=== PATIENT | female | born 1975 | race African-American/Black ===

== ENCOUNTER 2016-11-18 13:25 | Emergency (ER) | payer OTHER | END 2016-11-18 14:46 | disposition home or self-care (01) | LOC: ERS 13:25 | DX: S16.1XXA Strain of muscle, fascia and tendon at neck level, initial encounter (principal); S39.012A Strain of muscle, fascia and tendon of lower back, initial encounter; F41.9 Anxiety disorder, unspecified; F31.9 Bipolar disorder, unspecified; F17.210 Nicotine dependence, cigarettes, uncomplicated; V89.2XXA Person injured in unspecified motor-vehicle accident, traffic, initial encounter | CPT/HCPCS: 99283 ==

== ENCOUNTER 2018-03-12 01:42 | Emergency (ER) | payer OTHER ==
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
== END 2018-03-12 03:25 ==
LOC: ERS 01:42
DX: Z04.1 Encounter for examination and observation following transport accident (principal); I10 Essential (primary) hypertension; F17.210 Nicotine dependence, cigarettes, uncomplicated; F41.9 Anxiety disorder, unspecified; F31.9 Bipolar disorder, unspecified; V89.2XXA Person injured in unspecified motor-vehicle accident, traffic, initial encounter
CPT/HCPCS: 70450; 72125

== ENCOUNTER 2020-06-10 20:16 | Inpatient (IN) | payer OTHER ==
[2020-06-10] MEDS ORDERED: Propofol 1,000 MG/100 ML VIAL IV ONE (20:24)
[2020-06-10 20:29] LABS: #Basophils 0.1 thou/uL (0.0-0.2); #Eosinphils 0.2 thou/uL (0.0-0.7); #Lymphocytes 4.6 thou/uL (1.20-3.40); #Monocytes 1.3 thou/uL (0.11-0.59); #Neutrophils 4.5 thou/uL (1.40-6.50); %Basophils 0.8 % (0.0-1.0); %Eosinophils 2.1 % (0.0-10.0); %Lymphocytes 43.1 % (21.0-51.0); %Monocytes 11.8 % (0.0-10.0); %Neutrophils 42.3 % (42.0-75.0); Hemoglobin 13.5 g/dL (12.0-16.0); Mean Corpuscular HGB CONC 32.7 g/dL (32.0-36.0); Mean Corpuscular Hemoglobin 31.8 pg (27.0-31.0); Mean Corpuscular Volume 97.2 fL (78.0-98.0); Mean Platelet Volume 7.2 fL (7.4-10.4); Platelet Count 279 thou/uL (130-400); RBC Distribution Width 12.1 % (11.5-14.5); Red Blood Cell (RBC) Count 4.25 mill/uL (4.20-5.40); White Blood Cell (WBC) Count 10.6 thou/uL (4.8-10.8)
[2020-06-10 20:38] LABS: BHCG - Serum Negative (NEGATIVE); INR-International Normal Ratio 1.1; PTT 26.4 sec (22.9-36.1); Pregs Control Background? CLEAR/WHITE (CLR/WHITE); Pregs Control Bar Appear? YES (CONTROL BAR)
[2020-06-10 20:46] LABS: Bilirubin Negative (Negative); Blood, Urine 1+ (Negative); Clarity Clear (Clear); Glucose, Urine (Dipstick) Normal (Negative); Ketone, Urine Negative (Negative); Leukocyte 500 Leu/uL (Negative); Nitrite Negative (Negative); Protein, Urine (Dipstick) 50 mg/dL (Neg-Trace); RBC/HPF 0-3 HPF (0-3); Specific Gravity, Urine 1.013 (1.002-1.036); Squamous Epithelial 0-3 HPF (0-3); Urobilinogen Normal mg/dL (Less than 2)
[2020-06-10 20:46] LABS: ALT (SGPT) 20 U/L (8-55); AST (SGOT) 19 U/L (5-34); Acetaminophen Less than 6.0 mcg/mL (10.0-30.0); Albumin 3.8 g/dL (3.5-5.0); Alcohol 46 mg/dL (Less than 10); Alkaline Phosphatase 53 U/L (40-110); Anion Gap 18 mmol/L (10-20); BUN (Urea Nitrogen) 4 mg/dL (7.0-18.7); Bilirubin, Total 0.3 mg/dL (0.2-1.2); Calc. Creatinine Clearance 0 mL/min (70-130); Calcium 8.6 mg/dL (7.8-10.44); Carbon Dioxide 20 mmol/L (22-29); Chloride 104 mmol/L (98-107); Globulin 2.9 g/dL (2.4-3.5); Glucose 121 mg/dL (70-105); Lipase 38 U/L (8-78); Protein, Total 6.7 g/dL (6.0-8.3); Salicylate Less than 8.0 mg/dL (15.0-30.0); Sodium 139 mmol/L (136-145)
[2020-06-10 20:47] LABS: Bacteria/HPF 1+ HPF (None Seen)
[2020-06-10] MEDS ORDERED: Ondansetron PF 4 MG/2 ML Vial IVP PRN (20:48)
[2020-06-10] MEDS ORDERED: hydrALAZINE 20 MG/ML VIAL SLOW IVP PRN (20:48)
[2020-06-10] MEDS ORDERED: Dextrose 50% Abboject 50 ML SYRINGE SLOW IVP PRN (20:48)
[2020-06-10] MEDS ORDERED: Dextrose 5% in Water 1,000 ML IV PRN (20:48)
[2020-06-10] MEDS ORDERED: Ventilator Sedation Protocol 1 EACH FS ONE (20:52)
[2020-06-10] MEDS ORDERED: Sodium Chloride 0.9% 1,000 ML IV SCH (21:00)
[2020-06-10 21:06] LABS: Actual Bicarbonate (HCO3a) 19.4 mEq/L (22-28); Analyzer IN Cardio ER; Base Excess (BEa) -3.7 mEq/L (-2.0 to +3.0); CO2 Tension 29.8 mmHg (35.0-45.0); Carboxyhemoglobin (COHb) 1.3 gm% (0.0-3.0); Hemoglobin (Hb) 13.3 g/dL (12.0-16.0); O2 Tension (PaO2), arterial 469.9 mmHg (80.0-100.0); Potassium - ABG Lab 3.21 mmol/L (3.70-5.30); pH, Arterial 7.43 (7.35-7.45)
[2020-06-10 21:10] LABS: Puncture Site LRA
[2020-06-10 21:21] LABS: Phosphorus 2.6 mg/dL (2.3-4.7)
[2020-06-10] MEDS ORDERED: Fentanyl CADD 100 ML ONE (21:54)
[2020-06-10 21:59] LABS: SARS-CoV-2 NAA Rapid Test DETECTED (NotDetected)
[2020-06-10] MEDS ORDERED: Fentanyl BOLUS 250 ML IVPB PRN (22:15)
[2020-06-10] MEDS ORDERED: Fentanyl CADD 100 ML IV SCH (22:15)
[2020-06-10] MEDS ORDERED: DISCONTINUE PREVIOUS NARCOTIC PAIN MEDICATIONS AND BENZODIAZEPINES FS SCH (22:15)
[2020-06-10] MEDS ORDERED: Morphine 2 MG/ML VIAL SLOW IVP PRN (22:15)
[2020-06-10] MEDS ORDERED: Propofol BOLUS 1,000 MG/100 ML VIAL IV PRN (22:15)
[2020-06-10] MEDS ORDERED: Lorazepam 2 MG/ML VIAL SLOW IVP PRN (22:15)
[2020-06-10] MEDS ORDERED: Calcium Chloride 13.6 MEQ in Sodium Chloride 0.9% 100 ML IVPB SCH (22:30)
[2020-06-10 22:45] LABS: Medtox Reader # READER 1; Phencyclidine (PCP) Detected (NotDetected)
[2020-06-10 22:46] LABS: Amphetamine Not Detected (NotDetected); Barbiturates Screen Not Detected (NotDetected); Benzodiazepine Screen Not Detected (NotDetected); Cocaine Metabolite Screen Not Detected (NotDetected); Medtox Control Line Valid? VALID (VALID); Methadone Not Detected (NotDetected); Methamphetamine Not Detected (NotDetected); Opiate Screen Not Detected (NotDetected); Oxycodone Screen Not Detected (NotDetected); THC/Cannabinoid Screen Not Detected (NotDetected); Tricyclic Screen Not Detected (NotDetected)
[2020-06-10 23:02] VITALS: BMI 17.9
[2020-06-10] MEDS: Sodium Chloride 0.9% 1,000 ML IV SCH (23:14)
[2020-06-10 23:54] LABS: Lactic Acid 1.8 mmol/L (0.5-2.2)
[2020-06-11] MEDS: Propofol 1,000 MG/100 ML VIAL IV PRN ×2 (00:33→04:15)
[2020-06-11] MEDS ORDERED: Sodium Chloride 0.9% 1,000 ML IV SCH (02:00)
[2020-06-11] MEDS: Sodium Chloride 0.9% 1,000 ML IV SCH ×2 (04:15→22:47)
[2020-06-11 08:46] LABS: #Basophils 0.1 thou/uL (0.0-0.2); #Eosinphils 0.1 thou/uL (0.0-0.7); #Lymphocytes 3.8 thou/uL (1.20-3.40); #Monocytes 0.7 thou/uL (0.11-0.59); #Neutrophils 4.8 thou/uL (1.40-6.50); %Basophils 0.6 % (0.0-1.0); %Eosinophils 1.3 % (0.0-10.0); %Monocytes 7.3 % (0.0-10.0); %Neutrophils 50.7 % (42.0-75.0); Hemoglobin 12.7 g/dL (12.0-16.0); Mean Corpuscular HGB CONC 33.2 g/dL (32.0-36.0); Mean Corpuscular Hemoglobin 32.4 pg (27.0-31.0); Mean Corpuscular Volume 97.5 fL (78.0-98.0); Mean Platelet Volume 8.6 fL (7.4-10.4); Platelet Count 109 thou/uL (130-400); RBC Distribution Width 12.2 % (11.5-14.5); Red Blood Cell (RBC) Count 3.93 mill/uL (4.20-5.40); White Blood Cell (WBC) Count 9.4 thou/uL (4.8-10.8)
[2020-06-11 08:55] LABS: Lactic Acid 2.1 mmol/L (0.5-2.2)
[2020-06-11] MEDS: Famotidine/PF 20 mg/2ml Vial SLOW IVP SCH ×2 (09:00→20:51)
[2020-06-11 09:03] LABS: Anion Gap 15 mmol/L (10-20); BUN (Urea Nitrogen) Less than 4 mg/dL (7.0-18.7); Calc. Creatinine Clearance 65 mL/min (70-130); Calcium 8.5 mg/dL (7.8-10.44); Carbon Dioxide 20 mmol/L (22-29); Chloride 108 mmol/L (98-107); Glucose 80 mg/dL (70-105); Magnesium 1.9 mg/dL (1.6-2.6); Potassium 4.1 mmol/L (3.5-5.1); Sodium 139 mmol/L (136-145)
[2020-06-11 09:13] LABS: Phosphorus 3.8 mg/dL (2.3-4.7)
[2020-06-11] MEDS ORDERED: traMADol HCl 50 MG TAB PO PRN (20:15)
[2020-06-11] MEDS: Acetaminophen 325 MG TAB PO SCH (20:51)
[2020-06-11] MEDS ORDERED: Enoxaparin Sodium 40 MG/0.4 ML SYRINGE SC SCH (21:00)
[2020-06-11] MEDS: Ibuprofen 200 MG TAB PO SCH (22:16)
[2020-06-12] MEDS: traMADol HCl 50 MG TAB PO SCH ×5 (00:50→18:01)
[2020-06-12] MEDS: Melatonin 3 MG TAB PO PRN ×2 (01:26→21:02)
[2020-06-12] MEDS: Acetaminophen 325 MG TAB PO SCH ×4 (03:43→21:02)
[2020-06-12] MEDS: Oxazepam 10 MG CAP PO SCH ×3 (05:08→22:32)
[2020-06-12] MEDS: Ibuprofen 200 MG TAB PO SCH ×3 (05:08→21:02)
[2020-06-12] MEDS: Thiamine 100 MG TAB PO SCH (09:07)
[2020-06-12] MEDS: Famotidine/PF 20 mg/2ml Vial SLOW IVP SCH ×2 (09:08→09:10)
[2020-06-12] MEDS: Ascorbic Acid 500 mg Chewable Tablet PO SCH ×2 (09:08→21:02)
[2020-06-12] MEDS: Gabapentin 300 MG CAP PO SCH ×2 (15:27→21:02)
[2020-06-12] MEDS: Enoxaparin Sodium 40 MG/0.4 ML SYRINGE SC SCH (21:03)
[2020-06-13] MEDS: Famotidine/PF 20 mg/2ml Vial SLOW IVP SCH (00:13)
[2020-06-13] MEDS: Enoxaparin Sodium 40 MG/0.4 ML SYRINGE SC SCH ×2 (00:13→20:42)
[2020-06-13] MEDS: traMADol HCl 50 MG TAB PO SCH ×4 (00:46→17:49)
[2020-06-13] MEDS: Acetaminophen 325 MG TAB PO SCH ×4 (03:57→20:39)
[2020-06-13] MEDS: Oxazepam 10 MG CAP PO SCH ×3 (05:06→20:41)
[2020-06-13] MEDS: Ibuprofen 200 MG TAB PO SCH ×3 (05:06→20:40)
[2020-06-13] MEDS: Gabapentin 300 MG CAP PO SCH ×3 (08:59→20:39)
[2020-06-13] MEDS: Thiamine 100 MG TAB PO SCH (08:59)
[2020-06-13] MEDS: Ascorbic Acid 500 mg Chewable Tablet PO SCH ×2 (08:59→20:46)
[2020-06-13] MEDS: Cyclobenzaprine 10 MG TAB PO PRN ×2 (11:47→20:46)
[2020-06-13] MEDS: carBAMazepine 200 MG TAB PO SCH ×2 (11:49→16:11)
[2020-06-13 14:16] LABS: SARS-CoV-2 NAA Rapid Test Not Detected (NotDetected)
[2020-06-13] MEDS: Melatonin 3 MG TAB PO PRN (20:40)
[2020-06-13 20:46] LABS: SARS-CoV-2 IgG Ab Non-Reactive (NonReactive); SARS-CoV-2 IgG Index 0.36 S/CO (< 1.40)
[2020-06-14] MEDS: traMADol HCl 50 MG TAB PO SCH ×3 (00:24→11:15)
[2020-06-14] MEDS: Acetaminophen 325 MG TAB PO SCH ×3 (03:26→14:36)
[2020-06-14] MEDS: Oxazepam 10 MG CAP PO SCH ×2 (05:15→13:49)
[2020-06-14] MEDS: Ibuprofen 200 MG TAB PO SCH ×2 (05:15→13:48)
[2020-06-14] MEDS: carBAMazepine 200 MG TAB PO SCH ×2 (08:10→11:16)
[2020-06-14] MEDS: Gabapentin 300 MG CAP PO SCH ×2 (08:10→14:37)
[2020-06-14] MEDS: Ascorbic Acid 500 mg Chewable Tablet PO SCH (08:11)
[2020-06-14] MEDS: Thiamine 100 MG TAB PO SCH (08:11)
[2020-06-14] MEDS ORDERED: DULoxetine 30 MG CAP PO SCH (09:00)
[2020-06-14] MEDS: Cyclobenzaprine 10 MG TAB PO PRN (09:22)
[2020-06-14 13:24] VITALS: BP 113/73; TEMP 98
== END 2020-06-14 16:01 | disposition home or self-care (01) | DRG 917 ==
LOC: ERS 20:16 → CCU 20:41 → T4-B 06-12 00:03
PROVIDERS: ADMIT Specialist; ATTEND Specialist
PROC: 0BH17EZ Insertion of Endotracheal Airway into Trachea, Via Natural or Artificial Opening (ICD-10-PCS; principal; 2020-06-10)
PROC: 5A1935Z Respiratory Ventilation, Less than 24 Consecutive Hours (ICD-10-PCS; 2020-06-10)
PROC: 0D9670Z Drainage of Stomach with Drainage Device, Via Natural or Artificial Opening (ICD-10-PCS; 2020-06-10)
DX: T40.991A Poisoning by other psychodysleptics [hallucinogens], accidental (unintentional), initial encounter (principal); J96.00 Acute respiratory failure, unspecified whether with hypoxia or hypercapnia; R40.2312 Coma scale, best motor response, none, at arrival to emergency department; R40.2112 Coma scale, eyes open, never, at arrival to emergency department; R40.2212 Coma scale, best verbal response, none, at arrival to emergency department; Z20.822 Contact with and (suspected) exposure to COVID-19; Z79.51 Long term (current) use of inhaled steroids; Z79.899 Other long term (current) drug therapy; Z78.1 Physical restraint status; V49.9XXA Car occupant (driver) (passenger) injured in unspecified traffic accident, initial encounter; F20.9 Schizophrenia, unspecified; F41.9 Anxiety disorder, unspecified; I10 Essential (primary) hypertension
CPT/HCPCS: 36415; 36600; 51702; 70450; 71045; 71260; 72125; 72170; 74177; 80048; 80053; 80306; 80307; 81003; 81015; 82805; 83605; 83690; 83735; 84100; 84703; 85025; 85610; 85730; 86769; 86850; 86900; 86901; 87086; 93005; 94003; 96365; G0390; J0360; J1650; J2704; J3010; J3490; J7030; J7050; S0028; U0002

== ENCOUNTER 2020-06-15 21:54 | Emergency (ER) | payer OTHER ==
[2020-06-15] MEDS ORDERED: Cyclobenzaprine 10 MG TAB ONE (22:24)
[2020-06-15] MEDS ORDERED: Ketorolac Tromethamine 30 MG/ML VIAL ONE (22:24)
== END 2020-06-15 23:32 | disposition home or self-care (01) ==
LOC: ERS 21:54
DX: S39.012A Strain of muscle, fascia and tendon of lower back, initial encounter (principal); V49.9XXA Car occupant (driver) (passenger) injured in unspecified traffic accident, initial encounter
CPT/HCPCS: 72070; 96372; J1885